=== PATIENT | female | born 1985 | race Caucasian/White ===

== ENCOUNTER 2022-01-19 16:29 | Emergency (ER) | payer BC, OTHER, SELFPAY ==
[2022-01-19 16:40] VITALS: BP 148/60; PULSE 87; RESP 24; TEMP 37.8; O2SAT 100
--- NOTE | 2022-01-19 16:48 | ED.GENADULT ---
HPI - General Adult General Chief complaint: Upper Respiratory Infection Stated complaint: Shortness of Breath Time Seen by Provider: 01/19/22 17:00 Source: patient and RN notes reviewed Mode of arrival: ambulatory Limitations: no limitations History of Present Illness HPI narrative: 36-year-old female presented for c/o sinus pressure/congestion, cough,sob, body aches fever worsening over the last 3 days. Using inhaler more frequently. Endorses history of frequent bronchitis. She is not vaccinated for COVID or flu. She states her chiropractor adjusted her sinuses today without significant relief in symptoms. She is been taking cough drops with no relief. Denies chest pain, nausea, vomiting, diarrhea. Related Data Home Medications Medication Instructions Recorded Confirmed buspirone 5 mg PO TID 01/19/22 01/19/22 cetirizine [Zyrtec] 10 mg PO DAILY 01/19/22 01/19/22 cyclobenzaprine [Flexeril] 10 mg PO HS 01/19/22 01/19/22 fluoxetine 40 mg PO DAILY 01/19/22 01/19/22 melatonin 10 mg PO HS PRN 01/19/22 01/19/22 meloxicam 15 mg PO DAILY 01/19/22 01/19/22 montelukast [Singulair] 10 mg PO DAILY 01/19/22 01/19/22 topiramate 100 mg PO BID 01/19/22 01/19/22 Allergies Allergy/AdvReac Type Severity Reaction Status Date / Time No Known Allergies Allergy Verified 01/19/22 16:50 Review of Systems Review of Systems: CONSTITUTIONAL: Endorses malaise, chills, sweats, fever EYES: Denies visual changes, redness, or discharge ENT: Reports rhinorrhea, congestion, sinus pain CARDIOVASCULAR: Denies chest pain, palpitations, edema RESPIRATORY: Reports cough, post nasal drainage, dyspnea GASTROINTESTINAL: Denies abdominal pain, nausea, vomiting, diarrhea SKIN: Denies rash or itching MUSCULOSKELETAL: Endorses myalgia NEUROLOGIC: Denies headache Exam Narrative: GENERAL: Ill-appearing, nontoxic no acute distress. HEAD: Normocephalic EYES: PERRLA, conjunctivae clear ENT: Mucous membranes moist. TM pearly chairez with dull light reflex bilaterally; no tragal tenderness. Oropharynx erythematous without lesions or exudate, no drooling, no hoarseness, no trismus, uvula midline. NECK: Supple. left anterior cervical lymphadenopathy CHEST: Clear to auscultation, breath sounds equal. No wheezing, rhonchi, rales, or stridor. No respiratory distress, speaks in full sentences. Frequent cough. HEART: Regular rate and rhythm. No murmur heard. SKIN: Warm, dry, no rash. NEURO: Alert and oriented x3. PSYCH: Normal mood and affect Course Course Emergency Course: Covid positive Patient is aware of diagnosis, understands and agrees to treatment plan. Anticipatory guidance given. Patient agrees to follow-up as directed and is aware of reasons to seek care at the emergency department. Portions of this record may have been created with voice recognition software Level of Care: Express Care Visit Vital Signs Vital signs: Vital Signs Temperature 100.1 F H 01/19/22 16:40 Pulse Rate 87 01/19/22 16:40 Respiratory Rate 24 H 01/19/22 16:40 Blood Pressure 148/60 H 01/19/22 16:40 Pulse Oximetry 100 01/19/22 16:40 Temperature 100.1 F H 01/19/22 16:40 Pulse Rate 87 01/19/22 16:40 Respiratory Rate 24 H 01/19/22 16:40 Blood Pressure 148/60 H 01/19/22 16:40 Pulse Oximetry 100 01/19/22 16:40 reviewed Medical Decision Making MDM Narrative Medical decision making narrative: Covid positive, reviewed with pt. Patient is nontoxic appearing and appropriate for outp treatment and f/u. Differential Diagnosis Differential Diagnosis: influenza, covid, sinusitis, OM, strep pharyngitis, URI Vital Signs Vital Signs: Vital Signs Temperature 100.1 F H 01/19/22 16:40 Pulse Rate 87 01/19/22 16:40 Respiratory Rate 24 H 01/19/22 16:40 Blood Pressure 148/60 H 01/19/22 16:40 Pulse Oximetry 100 01/19/22 16:40 Temperature 100.1 F H 01/19/22 16:40 Pulse Rate 87 01/19/22 16:40 Respiratory Rate 24 H 01/19/22 16:40 Blood Pressure 14
== END 2022-01-19 17:36 | disposition home or self-care (01) ==
PROVIDERS: Emergency Provider Nurse Practitioner Family
DX: U07.1 COVID-19 (principal)
CPT/HCPCS: 87426; 87804; 99203; C9803; G0463

== ENCOUNTER 2024-05-18 15:27 | Emergency (ER) | payer OTHER, SELFPAY ==
--- NOTE | ~2024-05-18 | XR_ITS ---
EXAM: XR cervical spine 4-5V DATE: 05/18/2024 16:05 HISTORY: Neck/shoulder pain 6 days, neck injury any movement painful . COMPARISON: 10/24/2007. FINDINGS: Craniocervical association and atlantoaxial joint are aligned. Mild degenerative change at the atlantodental interval. No prevertebral soft tissue swelling. Vertebral bodies are aligned. 2 mm anterolisthesis at C2-3. Reversal of the normal cervical lordosis centered at C5-6. Multilevel mild disc space narrowing and marginal osteophytosis. Normal posterior elements. No neural foraminal narro wing. IMPRESSION: No acute fracture detected in the cervical spine. 2 mm anterolisthesis at C2-3, slightly increased since the prior study. Multilevel degenerative disc disease. Reviewed, dictated and finalized at location K. IMPRESSION: No acute fracture detected in the cervical spine. 2 mm anterolisthe sis at C2-3, slightly increased since the prior study. Multilevel degenerative disc disease.
[2024-05-18 15:39] VITALS: BP 146/55; PULSE 67; RESP 18; TEMP 36.6; O2SAT 100
--- NOTE | 2024-05-18 15:49 | ED.NECK ---
HPI - Neck Pain/Injury General Chief Complaint: Neck Pain/Injury Stated Complaint: Neck / Shoulder Injury Time Seen by Provider: 05/18/24 15:50 Source: patient, RN notes reviewed and old records reviewed Mode of arrival: ambulatory Limitations: no limitations History of Present Illness HPI Narrative: 38 year old female presents to express care with complaints of posterior neck pain with pain across shoulders for the past 6 days. Patient reports that she was trying to get a greenfield size mattress out of her van and she pushed on mattress using her head and shoulders to try and move it. Patient reports pain to neck and across shoulders since doing. Patient reports that she was seen in the [facility] urgent care on the 14 of May and received steroid shot and muscle relaxers but continues to have pain. Patient states that he had to call off work Monday and today due to her discomfort. MD complaint: neck pain Onset (ago): day(s) (6) Place: home Radiation: right shoulder and left shoulder Severity: moderate Severity scale (1-10): 8 Quality: other (pressure) Duration: constant Exacerbating factors: movement of neck Treatments prior to arrival: cold therapy, heat therapy and other (got steroid shot at [facility] urgent [facility] and has used heat and ice and taking muscle relaxers) Related Data Home Medications Medication Instructions Recorded Confirmed buspirone 5 mg tablet 5 mg PO TID 01/19/22 05/18/24 fluoxetine 40 mg capsule 40 mg PO DAILY 01/19/22 05/18/24 montelukast 10 mg tablet 10 mg PO DAILY 01/19/22 05/18/24 (Singulair) topiramate 100 mg tablet 100 mg PO BID 01/19/22 05/18/24 cyclobenzaprine 5 mg tablet 5 mg PO TID PRN Spasms 05/18/24 05/18/24 diclofenac sodium 75 mg 75 mg PO BID PRN Pain (Scale Score 05/18/24 05/18/24 tablet,delayed release 4-6) Allergies Allergy/AdvReac Type Severity Reaction Status Date / Time No Known Allergies Allergy Verified 05/18/24 15:47 Review of Systems Review of Systems: CONSTITUTIONAL: Denies fever, chills, or sweats. EYES: Denies visual changes, redness, or discharge. ENT: Denies rhinorrhea, congestion, sore throat, or otalgia. CARDIOVASCULAR: Denies chest pain, palpitations, or edema. RESPIRATORY: Denies cough or dyspnea. GASTROINTESTINAL: Denies abdominal pain, nausea, vomiting, or diarrhea. GENITOURINARY: Denies dysuria or hematuria. SKIN: Denies rash or itching. MUSCULOSKELETAL: Reports posterior neck pain across bilateral shoulders, joint pain, or myalgia. NEUROLOGIC: Denies headache, numbness, or weakness. PSYCHIATRIC: Reports history of anxiety or depression. All systems reviewed & are unremarkable except as noted in HPI and below PMFSH Past Medical History Medical History (Updated 05/18/24 @ 17:45 by Clara Lyons NP) Anxiety and depression Asthma Bipolar 1 disorder Bronchitis Manic depression Migraine Sleep apnea treated with continuous positive airway pressure (CPAP) Surgical History Surgical History (Updated 05/18/24 @ 17:42 by Clara Lyons NP) H/O tubal ligation Hx of cholecystectomy Social History Social History (Updated 05/18/24 @ 17:40 by Clara Lyons NP) Smoking status: Never smoker Alcohol intake: never Substance use type: does not use Living arrangements: with family Gender identity (if verbalized by the patient): Female Comments At time of signature, agree with nursing past medical, surgical, social and family history. There is no relevant family history pertinent to the presenting complaint Exam Narrative: GENERAL: Well-appearing, well-nourished, and in some distress with movement. HEAD: Normocephalic, atraumatic. EYES: PERRLA and EOMI. ENT: Nares clear, no rhinorrhea or epistaxis. Mucous membranes moist.TM s normal, throat pink with no swelling or pain, NECK: Supple.increase pain with movement of neck with pain also to shoulders especially left, full mobility of bilateral arms, strong pulses. CHEST: Clear to auscultation. No r
[2024-05-18] MEDS: KETOROLAC (*BKC) 60 MG/2 ML VIAL IM (16:30)
== END 2024-05-18 16:49 | disposition home or self-care (01) ==
PROVIDERS: Emergency Provider Registered Nurse; PCP Family Medicine
DX: M50.31 Other cervical disc degeneration, high cervical region (principal); J45.909 Unspecified asthma, uncomplicated; F41.9 Anxiety disorder, unspecified; F32.A Depression, unspecified
CPT/HCPCS: 72050; 96372; 99213; G0463; J1885